=== PATIENT | female | born 1950 | race Caucasian/White ===

== ENCOUNTER 2017-04-25 08:48 | Day surgery (SDC) | payer MEDICARE, OTHER ==
[2017-04-22 14:05] VITALS: BMI 20.1
--- NOTE | 2017-04-24 20:27 | HP ---
HISTORY OF PRESENT ILLNESS: Ms. Meade is a 66-year-old woman who is known to us for previous cervical spine surgery, who presents for several years of severe axial lower back pain as well as radiation t o the bilateral lower extremities in an L5 fashion. She has continued this over the years with physi cali therapy, injections, and several other conservative treatments along with medications and has nev er really yielded any significant benefit. She presents now with a new MRI and flexion and extension views from [facility] in [place], which reveals an L4-L5 spondylolisthesis grading 1 on a scale that is unstable on flexion and extension views. She would like to move forward with surgery if possible. PAST MEDICAL HISTORY: Includes cleft palate, osteoarthritis. CURRENT MEDICATIONS: Unlisted. ALLERGIES: VALIUM, CODEINE, SULFA, AND PENICILLIN. PAST SURGICAL HISTORY: Cleft palate surgery, L4-L5 fusion and removal, hysterectomy, fractured jaw, and fixation right knee replacement. PHYSICAL EXAMINATION: NEUROLOGIC: Patient is alert and oriented x3. Gait is severely antalgic. Lumbar range of motion is limited. ASSESSMENT: Spondylolisthesis and back pain. PLAN: Dr. Castillo met with the patient, reviewed imaging and advocated for an L4-L5 fusion. He explai kayleigh to the patient the risks, benefits, and alternatives to the procedure. The patient expressed und erstanding and would like to move forward with surgery as discussed. I do believe the patient is men tally competent and capable of making medical decisions for herself. We will move forward with surge ry as planned. Gonzalez Diehl PA-C dictating for Dr. Castillo.
[2017-04-25 09:43] LABS: #Basophils 0.1 thou/uL (0.0-0.2); #Eosinphils 0.2 thou/uL (0.0-0.7); #Lymphocytes 1.7 thou/uL (1.20-3.40); #Monocytes 0.4 thou/uL (0.11-0.59); #Neutrophils 3.3 thou/uL (1.40-6.50); %Basophils 1.3 % (0.0-1.0); %Eosinophils 3.7 % (0.0-10.0); %Lymphocytes 29.6 % (21.0-51.0); %Monocytes 7.6 % (0.0-10.0); %Neutrophils 57.8 % (42.0-75.0); Hemoglobin 12.7 g/dL (12.0-16.0); Mean Corpuscular HGB CONC 32.2 g/dL (32.0-36.0); Mean Corpuscular Hemoglobin 30.3 pg (27.0-31.0); Mean Corpuscular Volume 94.3 fl (81.0-99.0); Mean Platelet Volume 7.6 fL (7.4-10.4); Platelet Count 202 thou/uL (130-400); RBC Distribution Width 13.9 % (11.5-14.5); Red Blood Cell (RBC) Count 4.19 mill/uL (4.20-5.40); White Blood Cell (WBC) Count 5.8 thou/uL (4.8-10.8)
[2017-04-25 10:03] LABS: Anion Gap 13 mmol/L (10-20); BUN (Urea Nitrogen) 20 mg/dL (9.8-20.1); Calc. Creatinine Clearance 32 mL/min (70-130); Calcium 9.3 mg/dL (7.8-10.44); Carbon Dioxide 23 mmol/L (23-31); Chloride 107 mmol/L (98-107); Estimated GFR-MDRD 34; Glucose 117 mg/dL (80-115); Potassium 4.3 mmol/L (3.5-5.1); Sodium 139 mmol/L (136-145)
[2017-04-25] MEDS ORDERED: Levofloxacin 500 mg/D5W 100 ml Premix Bag ONE (10:03)
[2017-04-25] MEDS ORDERED: Clindamycin/D5W 900 mg/50 ml Premix Bag ONE (10:04)
[2017-04-25] MEDS ORDERED: Bupivacaine HCl 0.5%/Epinephrine 1:200,000/PF 30 ml Vial ONE (13:23)
[2017-04-25] MEDS ORDERED: Fentanyl 250 MCG/5 ML VIAL ONE ×2 (13:27→16:20)
[2017-04-25] MEDS ORDERED: ePHEDrine/0.9% NaCl/PF SYRINGE 50 mg/10 ml ONE (15:10)
[2017-04-25] MEDS ORDERED: Lidocaine 1% PF 5 ML VIAL ONE (15:10)
[2017-04-25] MEDS ORDERED: Glycopyrrolate 0.2 MG/ML 5 ML SYRINGE ONE (15:10)
[2017-04-25] MEDS ORDERED: Dexamethasone 20 MG/5 ML VIAL ONE (15:10)
[2017-04-25] MEDS ORDERED: Ondansetron HCl/PF 4 MG/2 ML Vial ONE (15:10)
[2017-04-25] MEDS ORDERED: Propofol 200 MG/20 ML VIAL ONE (15:10)
[2017-04-25] MEDS ORDERED: Promethazine HCl 25 MG/ML VIAL SLOW IVP PRN (16:09)
[2017-04-25] MEDS ORDERED: Morphine 4 MG/ML VIAL ONE ×3 (16:54→18:24)
--- NOTE | 2017-04-25 17:05 | OP ---
DATE OF SURGERY: 04/25/2017 SURGEON: Mihai Castillo M.D. VEGETABLE INSPECTOR: Zion Diehl PA-C. INDICATION: Pain. DIAGNOSIS: Lumbar spondylolisthesis of L4 upon L5. PROCEDURE: L4-L5 bilateral facetectomy, bilateral posterolateral instrumented fusion, placement of a llograft, and placement of autograft. TECHNIQUE: The patient was brought into the operating room and placed under general anesthesia. She was flipped from a supine or prone position on the operating room table. A linear incision was plan kayleigh over the L4-L5 segment. A self-retaining retractor was placed. After confirming the appropriate level, serum fluoroscopy, an Adson rongeur, as well as high-speed cutting drill bit as well as 2, 3 and 4 mm Kerrisons were used to remove the facets at L4-L5 bilaterally. The pedicles were identified bilaterally. Pedicle screws were placed with the aid of C-arm fluoroscopy bilaterally. An intraope rative 3-D CT scan was performed to confirm appropriate placement of hardware. Rods were then placed across the screw heads and final tightened. Allograft and autograft material was placed in the late ral confines of the instrumentation construct. The wound was irrigated. Hemostasis was maintained t hroughout. The wound was then closed in anatomic layers and a pressure dressing was applied. There were no known procedural complications.
[2017-04-25] MEDS ORDERED: Promethazine HCl 25 MG/ML VIAL ONE (17:56)
[2017-04-25] MEDS ORDERED: Milk Of Magnesia 30 ML UDCUP PO PRN (19:25)
[2017-04-25] MEDS ORDERED: tiZANidine HCl 4 MG TAB PO PRN (19:25)
[2017-04-25] MEDS ORDERED: HYDROcodone/Acetaminophen 7.5/325 mg Tablet PO PRN (19:25)
[2017-04-25] MEDS ORDERED: diphenhydrAMINE 25 MG CAP PO PRN (19:25)
[2017-04-25] MEDS ORDERED: Bisacodyl 10 MG SUPP PR PRN (19:25)
[2017-04-25] MEDS ORDERED: diphenhydrAMINE 50 MG/ML VIAL IVP PRN (19:25)
[2017-04-25] MEDS ORDERED: Acetaminophen 325 MG TAB PO PRN (19:25)
[2017-04-25] MEDS ORDERED: Mag-Al 1200 mg/1200 mg/30 ML UDCUP PO PRN (19:25)
[2017-04-25] MEDS ORDERED: Acetaminophen 650 MG Suppository PR PRN (19:25)
[2017-04-25] MEDS ORDERED: Morphine 4 MG/ML Carpuject SLOW IVP PRN (19:25)
[2017-04-25] MEDS ORDERED: Ondansetron HCl/PF 4 MG/2 ML Vial IM PRN (19:26)
[2017-04-25] MEDS ORDERED: Morphine 5 MG/ML SYRINGE SLOW IVP PRN ×2 (19:45)
--- NOTE | 2017-04-25 20:05 | EKG ---
Test Reason : PREOP Blood Pressure : / mmHG Vent. Rate : 065 BPM Atrial Rate : 065 BPM P-R Int : 152 ms QRS Dur : 122 ms QT Int : 444 ms P-R-T Axes : 069 066 068 degrees QTc Int : 461 ms Normal sinus rhythm Right bundle branch block Abnormal ECG No previous ECGs available Confirmed by DYAN GARCIA, DR. Cisneros ([id number]) on 04/25/2017 8:05:32 PM Referred By: FIGUEROA Confirmed By:DR. Amelia ZAIDI MD
[2017-04-25] MEDS ORDERED: WELCHOL PO SCH (21:00)
[2017-04-25] MEDS ORDERED: Pravastatin Sodium 40 MG TAB PO SCH (21:00)
[2017-04-25] MEDS: Clindamycin 150 MG CAP PO SCH (22:43)
[2017-04-25] MEDS: metFORMIN 500 MG TAB PO SCH (22:43)
[2017-04-25] MEDS: Gabapentin 300 MG CAP PO SCH (22:43)
[2017-04-25] MEDS: Sodium Chloride 0.9% 1,000 ML IV SCH (22:44)
[2017-04-25] MEDS: HYDROcodone/Acetaminophen 7.5/325 mg Tablet PO PRN (23:46)
[2017-04-26] MEDS: HYDROcodone/Acetaminophen 7.5/325 mg Tablet PO PRN ×2 (05:38→10:17)
[2017-04-26 07:59] VITALS: BP 113/59; TEMP 98.2
[2017-04-26] MEDS ORDERED: Pancrelipase DR 12000 1 CAP PO SCH (08:00)
[2017-04-26] MEDS ORDERED: CREON PO SCH (08:00)
--- NOTE | 2017-04-26 08:49 | DIS ---
Ms. Meade is a 66-year-old woman who was admitted to the [facility] by Dr. Mihai Lundberg on 04/25/2017 and subsequently discharged the following day 04/26/2017. HOSPITAL COURSE: Ms. Meade was admitted overnight for postoperative pain control issues following a l umbar fusion. She tolerated the night well with just typical oral and IV pain medications in the way of morphine and hydrocodone. No consultations were ordered. She was able to ambulate to the [facility] by her own accord. She also ambulated in the hallways and then ultimately was discharged home in good condition with followup planned at 2 weeks.
[2017-04-26] MEDS: metFORMIN 500 MG TAB PO SCH (09:21)
[2017-04-26] MEDS: Gabapentin 300 MG CAP PO SCH (09:21)
[2017-04-26] MEDS: Clindamycin 150 MG CAP PO SCH (09:22)
[2017-04-26] MEDS: Sodium Chloride 0.9% 1,000 ML IV SCH (09:51)
== END 2017-04-26 10:54 | disposition home or self-care (01) ==
LOC: SDC 08:48 → 3SE 18:23 → SDC 04-26 10:54
PROVIDERS: ATTEND Neurological Surgery
PROC: 0SG0071 Fusion of Lumbar Vertebral Joint with Autologous Tissue Substitute, Posterior Approach, Posterior Column, Open Approach (ICD-10-PCS; principal; 2017-04-25)
DX: M43.16 Spondylolisthesis, lumbar region (principal); M19.90 Unspecified osteoarthritis, unspecified site; Z88.0 Allergy status to penicillin; Z88.2 Allergy status to sulfonamides; Z88.5 Allergy status to narcotic agent; Z88.8 Allergy status to other drugs, medicaments and biological substances; Z79.84 Long term (current) use of oral hypoglycemic drugs; Z79.899 Other long term (current) drug therapy
CPT/HCPCS: 20930; 20936; 22630; 76001; 80048; 85025; 93005; 96374; 97116; 97139; C1713 ×2; G8978; G8979; G8980; 36415; 93010; A4216; J0670; J1100; J1956; J2001; J2270; J2405; J2550; J2704; J3010; J3490